=== PATIENT | female | born 2000 | race African-American/Black ===

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

== ENCOUNTER 2021-01-01 18:00 | Inpatient (IN) | payer OTHER ==
[2021-01-01 19:16] VITALS: BMI 24.7
[2021-01-01] MEDS ORDERED: Diphenoxylate HCl/Atropine Tablet PO PRN ×2 (19:18)
[2021-01-01] MEDS ORDERED: Zolpidem Tartrate 5 MG TAB PO PRN (19:18)
[2021-01-01] MEDS ORDERED: Misoprostol 200 MCG TAB PR PRN (19:18)
[2021-01-01] MEDS ORDERED: HYDROcodone/Acetaminophen 5/325 mg Tablet PO PRN ×2 (19:18)
[2021-01-01] MEDS ORDERED: NS w/ Oxytocin 30 units 500 ML IVPB SCH (19:18)
[2021-01-01] MEDS ORDERED: NS w/ Oxytocin 30 units 500 ML IV SCH ×2 (19:18)
[2021-01-01] MEDS ORDERED: Ibuprofen 800 MG TAB PO PRN (19:18)
[2021-01-01] MEDS ORDERED: Acetaminophen 500 MG TAB PO PRN (19:18)
[2021-01-01] MEDS ORDERED: Lactated Ringer's 1,000 ML IV SCH (19:18)
[2021-01-01] MEDS ORDERED: hydrALAZINE 20 MG/ML VIAL SLOW IVP PRN (19:18)
[2021-01-01] MEDS ORDERED: Lidocaine 1% (PF) 30 ML VIAL SC PRN (19:18)
[2021-01-01] MEDS ORDERED: Penicillin G Potassium 5 MILL.UNITS in Sodium Chloride 0.9% 100 ML IVPB SCH (19:18)
[2021-01-01] MEDS ORDERED: Promethazine HCl 25 MG/ML VIAL IM PRN (19:18)
[2021-01-01] MEDS ORDERED: Docusate 100 MG CAP PO PRN (19:18)
[2021-01-01] MEDS ORDERED: Ondansetron PF 4 MG/2 ML Vial IVP PRN (19:18)
[2021-01-01] MEDS ORDERED: Misoprostol 100 MCG TAB ONE (20:06)
[2021-01-01] MEDS: Misoprostol 100 MCG TAB VAG SCH (20:15)
[2021-01-01 20:28] LABS: Hemoglobin 9.4 g/dL (12.0-15.5); Mean Corpuscular Hemoglobin 24.5 pg (27.0-33.0); Mean Corpuscular Volume 79.1 fl (81.6-98.3); Platelet Count 215 10x3/uL (150-450); RBC Distribution Width 19.7 % (11.5-14.5); Red Blood Cell (RBC) Count 3.83 10x6/uL (3.90-5.03); White Blood Cell (WBC) Count 8.3 10x3/uL (3.5-10.5)
[2021-01-01 21:00] LABS: Hep B Surf Ag Non-Reactive S/CO (NonReactive); Syphilis Antibody Nonreactive (Nonreactive); Syphilis Antibody Index 0.03 S/CO (<1.00 Non-Reactive)
[2021-01-01 21:01] LABS: HBSAg Index 0.12 S/CO (0-0.99)
[2021-01-01] MEDS ORDERED: Zolpidem Tartrate 5 MG TAB PO SCH (22:15)
[2021-01-01] MEDS ORDERED: Acetaminophen 500 MG TAB PO SCH (22:15)
[2021-01-02] MEDS: Misoprostol 100 MCG TAB VAG SCH ×3 (03:16→23:02)
[2021-01-02] MEDS ORDERED: Penicillin G Potassium 5 MILL.UNITS VIAL ONE (08:37)
[2021-01-02] MEDS: Butorphanol Tartrate 1 MG/ML VIAL SLOW IVP PRN ×2 (10:57→13:13)
[2021-01-02] MEDS: Penicillin G 2.5 MILL.units 2.5 MILL.UNITS in Premix Bag 1 BAG IVPB SCH ×3 (13:08→23:03)
[2021-01-02] MEDS ORDERED: Fentanyl 2 mcg/Bup 0.1% Cadd 100 ML ONE (15:21)
[2021-01-02] MEDS ORDERED: Lactated Ringer's 500 ML IV PRN (18:03)
[2021-01-02] MEDS ORDERED: Promethazine HCl 25 MG/ML VIAL IM PRN (18:03)
[2021-01-02] MEDS ORDERED: Hydrocerin (Eucerin) Cream 120 gm Jar TOP PRN (18:03)
[2021-01-02] MEDS ORDERED: ePHEDrine Sulfate 50 MG/10 ML VIAL SLOW IVP PRN (18:03)
[2021-01-02] MEDS ORDERED: Acetaminophen 325 MG TAB PO PRN (18:03)
[2021-01-02] MEDS ORDERED: diphenhydrAMINE 50 MG/ML VIAL IVP PRN (18:03)
[2021-01-02] MEDS ORDERED: Naloxone HCl 0.4 mg/ml Vial IVP PRN ×2 (18:03)
[2021-01-02] MEDS ORDERED: Ondansetron PF 4 MG/2 ML Vial IVP PRN ×2 (18:03→18:31)
[2021-01-02] MEDS ORDERED: Fentanyl 2 mcg/Bupivacaine 0.1% Cassette 100 ML EPIDURAL SCH (18:15)
[2021-01-02] MEDS ORDERED: Communication Order-Pharmacy FS PRN (18:15)
[2021-01-02] MEDS ORDERED: Preparation H Ointment 28 GM TUBE PR PRN (18:31)
[2021-01-02] MEDS ORDERED: Milk Of Magnesia 30 ML UDCUP PO PRN (18:31)
[2021-01-02] MEDS ORDERED: Lanolin Ointment 7 GM TUBE TOP PRN (18:31)
[2021-01-02] MEDS ORDERED: Bisacodyl 10 MG SUPP PR PRN (18:31)
[2021-01-02] MEDS ORDERED: Benzocaine-Menthol 82.5 ML CAN TOP PRN (18:31)
[2021-01-02] MEDS ORDERED: Acetaminophen/Codeine 30-300mg Tablet PO PRN ×2 (18:31)
[2021-01-02] MEDS ORDERED: hydrALAZINE 20 MG/ML VIAL SLOW IVP PRN (18:31)
[2021-01-02] MEDS ORDERED: Boostrix 0.5 ML (Tdap) VIAL IM ONE (18:31)
[2021-01-02] MEDS ORDERED: diphenhydrAMINE 25 MG CAP PO PRN (18:31)
[2021-01-02] MEDS ORDERED: Misoprostol 200 MCG TAB VAG PRN (18:31)
[2021-01-02] MEDS ORDERED: NS w/ Oxytocin 30 units 500 ML IV SCH (18:45)
[2021-01-02] MEDS: Docusate Calcium (SURFAK) 240 MG CAP PO SCH (22:55)
[2021-01-02] MEDS: Ibuprofen 800 MG TAB PO SCH (22:55)
[2021-01-03] MEDS: Ibuprofen 800 MG TAB PO SCH ×3 (06:30→21:20)
[2021-01-03 06:42] LABS: Mean Corpuscular HGB CONC 31.1 g/dL (32.0-36.0); Mean Corpuscular Hemoglobin 24.6 pg (27.0-33.0); Mean Corpuscular Volume 79.3 fl (81.6-98.3); Platelet Count 195 10x3/uL (150-450); RBC Distribution Width 19.6 % (11.5-14.5); Red Blood Cell (RBC) Count 4.06 10x6/uL (3.90-5.03); White Blood Cell (WBC) Count 16.3 10x3/uL (3.5-10.5)
[2021-01-03] MEDS: Docusate Calcium (SURFAK) 240 MG CAP PO SCH ×3 (08:45→21:21)
[2021-01-03] MEDS: Prenatal Vitamin 1 TAB PO SCH (08:45)
[2021-01-03] MEDS: Ferrous Sulfate 325 MG TAB PO SCH ×2 (08:45→21:21)
[2021-01-04] MEDS: Ibuprofen 800 MG TAB PO SCH (05:04)
[2021-01-04 07:58] VITALS: BP 108/61; TEMP 98.5
[2021-01-04] MEDS: Docusate Calcium (SURFAK) 240 MG CAP PO SCH (08:21)
[2021-01-04] MEDS: Prenatal Vitamin 1 TAB PO SCH (08:21)
[2021-01-04] MEDS: Ferrous Sulfate 325 MG TAB PO SCH (11:27)
== END 2021-01-04 11:44 | disposition home or self-care (01) | DRG 807 ==
LOC: CSHLD 18:29 → CSHPP 01-02 22:00
PROVIDERS: ADMIT Obstetrics & Gynecology; ATTEND Obstetrics & Gynecology
PROC: 10D07Z6 Extraction of Products of Conception, Vacuum, Via Natural or Artificial Opening (ICD-10-PCS; principal; 2021-01-02)
PROC: 10907ZC Drainage of Amniotic Fluid, Therapeutic from Products of Conception, Via Natural or Artificial Opening (ICD-10-PCS; 2021-01-02)
PROC: 3E033VJ Introduction of Other Hormone into Peripheral Vein, Percutaneous Approach (ICD-10-PCS; 2021-01-02)
DX: O99.824 Streptococcus B carrier state complicating childbirth (principal); Z37.0 Single live birth; O99.02 Anemia complicating childbirth; D64.9 Anemia, unspecified; J45.909 Unspecified asthma, uncomplicated; O99.513 Diseases of the respiratory system complicating pregnancy, third trimester; O36.5930 Maternal care for other known or suspected poor fetal growth, third trimester, not applicable or unspecified; O76 Abnormality in fetal heart rate and rhythm complicating labor and delivery; Z3A.38 38 weeks gestation of pregnancy; Z79.51 Long term (current) use of inhaled steroids; Z79.899 Other long term (current) drug therapy
CPT/HCPCS: 36415; 51702; 76815; 85027; 86780; 86850; 86900; 86901; 87340; 88307; J0595; J2405; J2540; J2590

== ENCOUNTER 2022-09-19 21:35 | Emergency (ER) | payer OTHER ==
[2022-09-19] MEDS ORDERED: Azithromycin 250 MG TAB ONE (22:36)
[2022-09-19] MEDS ORDERED: cefTRIAXone (ROCEPHIN) 500 MG VIAL ONE (22:36)
[2022-09-19 22:41] LABS: Bilirubin Neg (Negative); Blood, Urine 25 (Negative); Clarity Cloudy (Clear); Glucose, Urine (Dipstick) Normal (Negative); Ketone, Urine 5 mg/dL (Negative); Leukocyte 500 (Negative); Nitrite Negative (Negative); Protein, Urine (Dipstick) 30 mg/dl (Neg-Trace)
[2022-09-19 22:44] LABS: Pregnancy Test - Urine (BHCG) Negative (Negative); Pregu Control Background? CLEAR/WHITE (CLR/WHITE); Pregu Control Bar Appear? YES (CONTROL BAR)
[2022-09-19 23:05] LABS: Bacteria/HPF 2+ HPF (None Seen); WBC/HPF Greater than 50 HPF (0-3)
[2022-09-22 11:23] LABS: GC by PCR, EndoCx Swab DETECTED (NotDetected)
== END 2022-09-19 23:20 | disposition home or self-care (01) ==
LOC: CSHERS 21:35
DX: N39.0 Urinary tract infection, site not specified (principal); J45.909 Unspecified asthma, uncomplicated; Z87.891 Personal history of nicotine dependence; Z11.3 Encounter for screening for infections with a predominantly sexual mode of transmission
CPT/HCPCS: 81003; 81015; 81025; 87480; 87510; 87591; 87660; 96372; 99283; J0696

== ENCOUNTER 2022-11-19 15:49 | Emergency (ER) | payer OTHER ==
[2022-11-19] MEDS ORDERED: Ibuprofen 200 MG TAB ONE (17:52)
== END 2022-11-19 17:59 | disposition home or self-care (01) ==
LOC: CSHERS 15:49
DX: S60.012A Contusion of left thumb without damage to nail, initial encounter (principal); S60.022A Contusion of left index finger without damage to nail, initial encounter; Z87.891 Personal history of nicotine dependence

== ENCOUNTER 2023-02-19 13:18 | Emergency (ER) | payer OTHER ==
[2023-02-19 14:09] LABS: Bilirubin Neg (Negative); Blood, Urine 150 (Negative); Clarity Cloudy (Clear); Glucose, Urine (Dipstick) 50 mg/dL (Negative); Ketone, Urine 15 mg/dL (Negative); Leukocyte Negative (Negative); Nitrite Negative (Negative); Protein, Urine (Dipstick) Negative (Neg-Trace); Specific Gravity, Urine 1.015 (1.005-1.030); Urobilinogen Normal mg/dL (Less than 2)
[2023-02-19 14:28] LABS: #Monocytes 0.5 10x3/uL (0.0-1.1); #Neutrophils 5.6 10x3/uL (1.5-8.4); %Basophils 0.4 % (0.0-2.0); %Eosinophils 0.1 % (0.0-6.0); %Lymphocytes 17.1 % (18.0-47.0); %Monocytes 6.4 % (0.0-10.0); %Neutrophils 75.7 % (40.0-75.0); Hematocrit 37.4 % (34.9-44.5); Hemoglobin 12.3 g/dL (12.0-15.5); Mean Corpuscular HGB CONC 32.9 g/dL (32.0-36.0); Mean Corpuscular Hemoglobin 26.5 pg (27.0-33.0); Mean Corpuscular Volume 80.4 fl (81.6-98.3); Mean Platelet Volume 10.8 fl (7.4-10.4); Platelet Count 242 10x3/uL (150-450); Red Blood Cell (RBC) Count 4.65 10x6/uL (3.90-5.03); White Blood Cell (WBC) Count 7.4 10x3/uL (3.5-10.5)
[2023-02-19 14:39] LABS: ALT (SGPT) 12 U/L (8-55); AST (SGOT) 20 U/L (5-34); Albumin 4.4 g/dL (3.5-5.0); Alkaline Phosphatase 45 U/L (40-110); Anion Gap 11 mmol/L (10-20); BUN (Urea Nitrogen) 4 mg/dL (7.0-18.7); Bilirubin, Total 0.3 mg/dL (0.2-1.2); Calc. Creatinine Clearance 0 mL/min (70-130); Calcium 9.9 mg/dL (7.8-10.44); Carbon Dioxide 22 mmol/L (22-29); Chloride 104 mmol/L (98-107); Estimated GFR 127; Globulin 2.7 g/dL (2.4-3.5); Glucose 87 mg/dL (70-105); Potassium 3.8 mmol/L (3.5-5.1); Protein, Total 7.1 g/dL (6.0-8.3); Sodium 133 mmol/L (136-145)
[2023-02-19 14:45] LABS: Bacteria/HPF None Seen HPF (None Seen); CAUTI Indications for Culture Pregnancy; RBC/HPF 0-3 HPF (0-3); WBC/HPF 0-3 HPF (0-3)
[2023-02-19 14:46] LABS: Urine Culture Reflex Yes Yes
[2023-02-19] MEDS ORDERED: Ondansetron ODT 4 MG TAB ONE (15:54)
== END 2023-02-19 17:48 | disposition home or self-care (01) ==
LOC: CSHERS 13:18
DX: N93.9 Abnormal uterine and vaginal bleeding, unspecified (principal); R11.0 Nausea
CPT/HCPCS: 36415; 76815; 80053; 81001; 84702; 85025; 86900; 86901; 87086; Q0162

== ENCOUNTER 2023-04-26 10:40 | Emergency (ER) | payer OTHER ==
[2023-04-26 11:27] LABS: Bilirubin Neg (Negative); Blood, Urine Negative (Negative); Clarity Clear (Clear); Glucose, Urine (Dipstick) Normal (Negative); Ketone, Urine Negative (Negative); Leukocyte Negative (Negative); Nitrite Negative (Negative); Protein, Urine (Dipstick) Negative (Neg-Trace); Urobilinogen Normal mg/dL (Less than 2)
[2023-04-26 11:35] LABS: Bacteria/HPF None Seen HPF (None Seen); CAUTI Indications for Culture Pregnancy; RBC/HPF None Seen HPF (0-3); Squamous Epithelial 0-3 HPF (0-3); WBC/HPF 0-3 HPF (0-3)
[2023-04-26] MEDS ORDERED: Ondansetron PF 4 MG/2 ML Vial ONE (11:35)
[2023-04-26 11:37] LABS: Urine Culture Reflex Yes Yes
[2023-04-26 11:42] LABS: #Eosinphils 0.1 10x3/uL (0.0-0.5); #Monocytes 0.5 10x3/uL (0.0-1.1); #Neutrophils 5.1 10x3/uL (1.5-8.4); %Basophils 0.5 % (0.0-2.0); %Eosinophils 1.2 % (0.0-6.0); %Lymphocytes 13.2 % (18.0-47.0); %Monocytes 7.7 % (0.0-10.0); %Neutrophils 77.1 % (40.0-75.0); Hematocrit 32.1 % (34.9-44.5); Hemoglobin 10.5 g/dL (12.0-15.5); Mean Corpuscular HGB CONC 32.7 g/dL (32.0-36.0); Mean Corpuscular Hemoglobin 26.6 pg (27.0-33.0); Mean Corpuscular Volume 81.3 fl (81.6-98.3); Mean Platelet Volume 11.2 fl (7.4-10.4); Platelet Count 228 10x3/uL (150-450); RBC Distribution Width 14.9 % (11.5-14.5); Red Blood Cell (RBC) Count 3.95 10x6/uL (3.90-5.03); White Blood Cell (WBC) Count 6.6 10x3/uL (3.5-10.5)
[2023-04-26 12:05] LABS: SARS-CoV-2 NAA Rapid Test Not Detected (NotDetected)
[2023-04-26 12:14] LABS: ALT (SGPT) 12 U/L (8-55); AST (SGOT) 20 U/L (5-34); Albumin 3.8 g/dL (3.5-5.0); Alkaline Phosphatase 39 U/L (40-110); Anion Gap 14 mmol/L (10-20); BUN (Urea Nitrogen) 5 mg/dL (7.0-18.7); Bilirubin, Total 0.3 mg/dL (0.2-1.2); Calc. Creatinine Clearance 0 mL/min (70-130); Carbon Dioxide 19 mmol/L (22-29); Chloride 106 mmol/L (98-107); Estimated GFR 129; Globulin 2.7 g/dL (2.4-3.5); Glucose 75 mg/dL (70-105); Magnesium 1.7 mg/dL (1.6-2.6); Potassium 4.3 mmol/L (3.5-5.1); Protein, Total 6.5 g/dL (6.0-8.3); Sodium 135 mmol/L (136-145)
== END 2023-04-26 12:54 | disposition home or self-care (01) ==
LOC: CSHERS 10:40
DX: O21.9 Vomiting of pregnancy, unspecified (principal); Z3A.18 18 weeks gestation of pregnancy; Z20.822 Contact with and (suspected) exposure to COVID-19
CPT/HCPCS: 80053; 81001; 83735; 85025; 87086; 96361; 96374; J2405